=== PATIENT | male | born 2005 | race African-American/Black ===

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

== ENCOUNTER 2023-06-18 23:58 | Emergency (ER) | payer OTHER ==
[2023-06-19] MEDS ORDERED: Bacitracin 1 PK ONE (00:55)
[2023-06-19] MEDS ORDERED: Ibuprofen 800 MG TAB ONE (00:56)
[2023-06-19] MEDS ORDERED: Boostrix 0.5 ML (Tdap) VIAL (>/=7 yrs of age) ONE (00:57)
== END 2023-06-19 01:29 | disposition home or self-care (01) ==
LOC: ERS 23:58
DX: S61.451A Open bite of right hand, initial encounter (principal); W54.0XXA Bitten by dog, initial encounter; Z23 Encounter for immunization
CPT/HCPCS: 90471; 90715